=== PATIENT | male | born 1960 | race African-American/Black ===

== ENCOUNTER 2018-12-29 20:59 | Emergency (ER) | payer OTHER ==
[~2018-12-29] VITALS: Ht 172.7 cm; Wt 104.3 kg
[2018-12-29 21:10] VITALS: BP 186/134
--- NOTE | 2018-12-29 21:10 | NUR ---
ED Nurse Note: Patient walked in to ER c/o high blood pressure and headache. Pt stated "he felt different". As per patient, he checked his BP at home and it was 177/110. Denies blurry vision, chest pain, n/v. Takes tribenzor, but last time taking meds was in May 2018. No SOB. Breathing even and unlabored.
[2018-12-29] MEDS ORDERED: TRIBENZOR 40-11 EAC1 ORAL (21:21)
--- NOTE | 2018-12-29 21:21 | Emergency Room Report ---
History of Present Illness General Chief Complaint: Hypertension Source: Patient Present Illness HPI This is a 58-year-old male with a history of high blood pressure. He presents with chief complaint of high blood pressure. He lost his insurance in May. He was taking Tribenzor and it was working well. He came in with chief complaint of high blood pressure. He checked it at home and blood pressure was 170/120s. He denies any symptom. No nausea no vomiting. No headache. No chest pain. No shortness of breath. He has insurance since July but has not seen any doctor. Allergies: Coded Allergies: No Known Allergies (Unverified , 12/29/18) Patient History Past Medical History: see triage record, old chart reviewed, HTN Past Surgical History: other Pertinent Family History: none Social History: Denies: smoking Immunizations: other Reviewed Nursing Documentation: PMH: Agreed; PSxH: Agreed Nursing Documentation-PMH Hx Hypertension: Yes Review of Systems Eye: Denies: eye pain, blurred vision ENT: Denies: ear pain, nose congestion, throat swelling Respiratory: Denies: cough, shortness of breath Cardiovascular: Denies: chest pain, palpitations Gastrointestinal: Denies: abdominal pain, diarrhea, nausea, vomiting Musculoskeletal: Denies: back pain, joint pain Skin: Denies: rash Neurological: Denies: headache, numbness Endocrine: Denies: increased thirst, increased urine Hematologic/Lymphatic: Denies: easy bruising All Other Systems: negative except mentioned in HPI Physical Exam Vital Signs Date Time Temp Pulse Resp B/P (MAP) Pulse Ox O2 Delivery O2 Flow Rate FiO2 12/29/18 21:01 98.2 92 18 186/134 (151) 96 Room Air vitals with htn Sp02 EP Interpretation: reviewed, normal General Appearance: well appearing, no apparent distress, alert Head: normocephalic, atraumatic Eyes: bilateral eye PERRL, bilateral eye EOMI ENT: hearing grossly normal, normal pharynx Neck: full range of motion, supple, no meningismus Respiratory: chest non-tender, lungs clear, normal breath sounds Cardiovascular #1: regular rate, rhythm, no murmur Gastrointestinal: normal bowel sounds, non tender, no mass, no organomegaly, no bruit, non-distended Musculoskeletal: back normal, gait/station normal, normal range of motion Psychiatric: mood/affect normal Medical Decision Making Diagnostic Impression: Primary Impression: Hypertension Qualified Codes: I10 - Essential (primary) hypertension ER Course Patient presents with hypertension. There is no evidence of endorgan damage. Blood pressure dropped about 20% here. Will discharge home. Last Vital Signs Date Time Temp Pulse Resp B/P (MAP) Pulse Ox O2 Delivery O2 Flow Rate FiO2 12/29/18 21:01 98.2 92 18 186/134 (151) 96 Room Air Status: improved Disposition: HOME, SELF-CARE Condition: Stable Scripts Olmesartan Med/Amlodipine/Hctz 40-10-25MG (TRIBENZOR 40-10-25 MG TABLET) 1 Each Tablet 1 TAB ORAL DAILY, #90 TAB Prov: Mk Mustafa MD 12/29/18 Additional Instructions: Take your blood pressure medication. Follow-up with your doctor in 7 days. Return if symptoms worsen. Mk Mustafa MD Dec 29, 2018 21:21
--- NOTE | 2018-12-29 21:35 | NUR ---
ED Nurse Note: IV line established. Blood and urine collected and sent to lab.
[2018-12-29 21:53] LABS: APPEARANCE,URINE CLEAR; BILIRUBIN, URINE NEGATIVE (NEGATIVE); COLOR,URINE PALE YELLOW; GLUCOSE, URINE (UA) NEGATIVE (NEGATIVE); KETONES,URINE NEGATIVE (NEGATIVE); LEUKOCYTE ESTERASE ,URINE NEGATIVE (NEGATIVE); NITRITE,URINE NEGATIVE (NEGATIVE); PH,URINE 6.5 (4.5-8.0); PROTEIN,URINE NEGATIVE (NEGATIVE); UROBILINOGEN,URINE NORMAL MG/DL (0.0-1.0)
[2018-12-29 21:54] LABS: BASOPHILS % (AUTO) 3.6 % (0.0-2.0); EOSINOPHILS % (AUTO) 3.5 % (0.0-3.0); HEMATOCRIT 46.2 % (42.0-52.0); HEMOGLOBIN 14.7 G/DL (14.2-18.0); LYMPHOCYTES % (AUTO) 37.9 % (20.0-45.0); MEAN CORPUSCULAR VOLUME 71 FL (80-99); MONOCYTES % (AUTO) 11.2 % (1.0-10.0); NEUTROPHILS % (AUTO) 43.9 % (45.0-75.0); PLATELET COUNT 227 K/UL (150-450); RED BLOOD COUNT 6.55 M/UL (4.70-6.10); WHITE BLOOD COUNT 4.5 K/UL (4.8-10.8)
[2018-12-29 22:02] LABS: ANION GAP 10 mmol/L (5-15); BLOOD UREA NITROGEN 9 mg/dL (7-18); CALCIUM 9.4 MG/DL (8.5-10.1); CARBON DIOXIDE 28 MMOL/L (21-32); CHLORIDE 104 MMOL/L (98-107); POTASSIUM 3.6 MMOL/L (3.5-5.1); SODIUM 142 MMOL/L (136-145)
[2018-12-29 22:33] VITALS: BP 164/98
--- NOTE | 2018-12-29 22:33 | NUR ---
ED Nurse Note: Pt cleared by ERMD for discharge. DC instructions/prescription was given and explained to pt and verbalized understanding of teachings. All medical deviecs such as ID band adn IV line removed. Pt is AAO x4, ambulatory and left with all personal belongings. Accompanied by and daughter.
== END 2018-12-29 22:25 | disposition home or self-care (01) ==
LOC: EMR 21:43
DX: I10 Essential (primary) hypertension (principal)
CPT/HCPCS: 36415; 80048; 81001; 85025; Z7502; 99283